=== PATIENT | male | born 1970 | race Caucasian/White ===

== ENCOUNTER 2016-10-03 01:51 | Emergency (ER) | payer OTHER ==
[~2016-10-03] VITALS: Ht 167.6 cm; Wt 72.0 kg
[2016-10-03] MEDS ORDERED: TAMSULOSIN HCL 0.4 MG CAPSULE PO ONE (04:30)
[2016-10-03] MEDS ORDERED: CIPROFLOXACIN HCL 250 MG TABLET PO ONE (04:30)
[2016-10-03 04:41] VITALS: BP 134/82
== END 2016-10-03 04:44 | disposition home or self-care (01) ==
LOC: EMS 01:53
DX: N39.0 Urinary tract infection, site not specified (principal); N32.0 Bladder-neck obstruction; F15.90 Other stimulant use, unspecified, uncomplicated; F11.90 Opioid use, unspecified, uncomplicated
CPT/HCPCS: 99283